=== PATIENT | male | born 1975 | race Hispanic/Latino ===

== ENCOUNTER 2021-01-22 08:44 | Emergency (ER) | payer BC ==
[~2021-01-22] VITALS: Ht 177.8 cm; Wt 101.3 kg
[2021-01-22] MEDS ORDERED: OMEPRAZOLE40 MG PO (08:59)
[2021-01-22] MEDS ORDERED: AUGMENTIN 500-1 EACH PO (09:42)
[2021-01-22] MEDS ORDERED: TYLENOL # 31 EA PO (09:42)
[2021-01-22] MEDS ORDERED: MUPIROCIN 2% OINT 22 GM TUBE TOP STA (09:45)
== END 2021-01-22 10:00 | disposition home or self-care (01) ==
LOC: FSED 08:53
DX: S61.411A Laceration without foreign body of right hand, initial encounter (principal); W25.XXXA Contact with sharp glass, initial encounter; Y92.008 Other place in unspecified non-institutional (private) residence as the place of occurrence of the external cause
CPT/HCPCS: 99283